=== PATIENT | female | born 1950 | race Caucasian/White ===

== ENCOUNTER → 2016-08-17 13:53 | Outpatient (CLI) | payer MEDICARE, OTHER ==
[2011-07-11 11:28] VITALS: BMI 24.6
== END | disposition home or self-care (01) ==
LOC: D.CT 13:53
DX: R51 Headache (principal)

== ENCOUNTER → 2018-03-12 19:45 | Outpatient (CLI) | payer MEDICARE ==
[2011-07-11 11:28] VITALS: BMI 24.6
== END | disposition home or self-care (01) ==
LOC: D.MAMMO 11:30
DX: N64.4 Mastodynia (principal)

== ENCOUNTER 2018-08-21 10:19 | Outpatient (CLI) | payer MEDICARE, BC ==
[~2018-08-21] VITALS: Ht 167.6 cm; Wt 68.2 kg
--- NOTE | ~2018-08-21 | HEMODYNAMI ---
PATIENT:ELLI WISEMAN MEDICAL RECORD: [id number] : 50 LOCATION:D.CAT ADMISSION DATE: 08/21/18 Generatedon:08/21/201812:57 Patient name: ELLI WISEMAN Patient #: [id number] SSN: : Date of study: 08/21/2018 Page: Of Hemodynamic Procedure Report Patient Data Patient Demographics Procedure consent was obtained First Name: ELLI Gender: Female Last Name: BOWEN : 1950 Middle Initial: L Age: 67 year(s) Patient #: [id number] Race: Unknown Additional ID: [id number] Contact details Address: [address] [place] [address] State: [place] City: [place] Zip code: [address] Past Medical History Allergies Allergen Reaction Date Comments Reported Penicillins 08/21/2018 Sulfa drugs 08/21/2018 Admission Admission Data Admission Date: 08/21/2018 Admission Time: 10:19 Height (in.): 65.75 BSA: 1.76 (m2) Height (cm.): 167 BMI: 24.38 (kg/m2) Weight (lbs.): 149.92 Weight (kg.): 68 Procedure Procedure Types Cath Procedure Diagnostic Procedure [facility] w/Coronaries FFR/IVUS Intra-Coronary IVUS Initial Procedure Description Procedure Date Procedure Date: 08/21/2018 Procedure Start Time: 12:39 Procedure End Time: 12:52 Procedure Staff Name Function Brady Arcos MD Performing Physician Shilpa Gutierrez RT Scrub Leland Calvo RT Monitor Gissell Banks RN Nurse Procedure Data Cath Procedure Fluoroscopy Diagnostic fluoroscopy Total fluoroscopy Time: 3.1 time: 3.1 min min Diagnostic fluoroscopy Total fluoroscopy dose: 348 dose: 348 mGy mGy Contrast Material Contrast Material Type Amount (ml) Isovue 300 54 Entry Location Entry Primary Successful Side Size Upsize Upsize Entry Closure Ochoa ccessful Closure Location (Fr) 1 (Fr) 2 (Fr) Remarks Device Remarks Radial Right 6 Fr Mechanical artery Short Compression Diagnostic catheters Device Type Used For End Catheter Placement DIAGNOSTIC AR MOD 5Fr Right Coronary Catheter ([id number]) Angiography DIAGNOSTIC [place] 110cm 5 Left Coronary Fr catheter ([id number]) Angiography Procedure Complications No complications Procedure Medications Medication Administration Route Dosage 0.9% NaCl I.V. 100 ml/hr Oxygen etCO2 Nasal cannula 2 l/min Lidocaine 2% added to field 20 Heparin Flush Bag added to field 2 bags (1000units/500ml NS) Versed I.V. 2 mg Fentanyl I.V. 50 mcg Fentanyl I.V. 50 mcg Radial Cocktail added to field 1 syringe (Verapomil 2mg/Nitro 400mcg/Heparin 1500units) Hemodynamics Rest BSA: 1.76 (m2) O2 Consumption: Estimated: 157.21 (ml/min) O2 Consumption indexed : Estimated:89.32 (ml/min/m) Heart Rate: 61 (bpm) Snapshots Pre Cath Intra NCS Post Cath Vital Signs Time Heart Resp SPO2 etCO2 NIBP (mmHg) Rhythm Pain Sedation Rate (ipm) (%) (mmHg) Status Level (bpm) 12:25:53 61 10 100 34.3 182/85(145) Paced 0 (11) 10(A) , No pain 12:30:22 60 17 95 30.7 145/76(94) Paced 0 (11) 10(A) , No pain 12:34:46 60 17 99 17.1 127/74(88) Paced 0 (11) 10(A) , No pain 12:39:02 60 16 98 41.1 116/65(87) Paced 0 (11) 9(A) , No pain 12:43:16 59 17 98 40.3 118/61(78) Paced 0 (11) 9(A) , No pain 12:47:32 59 12 93 41 110/57(87) Paced 0 (11) 10(A) , No pain 12:51:46 60 11 97 39.6 113/62(84) Paced 0 (11) 10(A) , No pain Medications Time Medication Route Dose Verified Delivered Reason Notes E ffectiveness by by 12:24:49 0.9% NaCl I.V. 100 Brady Mensahyla used for ml/hr Isrrael Banks senior treasury analyst 12:25:36 Oxygen etCO2 2 l/min Brady Coffmana used for Nasal Isrrael Banks procedure cannula RN 12:25:42 Lidocaine 2% added 20ml Brady Abreu for local to vial Isrrael Arcos MD anesthetic field 12:25:46 Heparin Flush added 2 bags Brady Abreu used for Bag to Isrrael Arcos MD procedure (1000units/500ml field NS) 12:30:43 Versed I.V. 2 mg Brady Gissell for Isrrael Banks sedation RN 12:30:48 Fentanyl I.V. 50 mcg Brady Gissell for Isrrael Banks sedation RN 12:36:42 Fentanyl I.V. 50 mcg Brady Gissell for Isrrael Banks sedation RN 12:36:51 Radial Cocktail added 1 Brady Mensahyla used for (Verapomil to syringe Isrrael Banks procedure 2mg/Nitro field RN 400mcg/Hepari Procedure Log Time Note 11:50:37 Signed procedure consent form obtained from patient. 11:50:38 Diagnostic Cath status Elective 11:50:40 Time tracking: Regular hours (M-F 7:00 - 5:00) 11:50:43 Plan of Care:Hemodynamics will remain stable., Cardiac rhythm will remain stable., Comfort level will be maintained., Respiratory function will remain adequate., Patient/ family verbilizes understanding of procedure., Procedure tolerated without complication., Recovers from procedure without complications.. 11:53:21 Patient Weight : 149.92 lbs 11:53:24 Patient Height : 65.75 inches 12:03:29 Leland Suit RT(R) sent for patient. Start room use. 12:15:24 Patient received from ED to CCL 1 Alert and oriented. Tansferred to table in Supine position. 12:15:25 Correct patient and procedure confirmed by team. 12:15:25 Warm blankets applied, and bettye hugger turned on for patient comfort. 12:15:26 ECG and BP/O2 sat monitors applied to patient. 12:24:31 Vital chart was started 12:24:49 0.9% NaCl 100 ml/hr I.V. was administered by Gissell Banks RN; used for procedure; 12:25:36 Oxygen 2 l/min etCO2 Nasal cannula was administered by Gissell Banks RN; used for procedure; 12:25:42 Lidocaine 2% 20ml vial added to field was administered by Brady Arcos MD; for local anesthetic; 12:25:46 Heparin Flush Bag (1000units/500ml NS) 2 bags added to field was administered by Brady Arcos MD; used for procedure; 12::19 Baseline sample Acquired. 12::22 Rhythm: sinus rhythm 12::23 Full Disclosure recording started 12:28:27 H&P Date Dictated: 08/21/2018 Within 30 days and on chart.. 12::28 Pre-op teaching completed and patient verbalized understanding. 12::28 Pre-procedure instructions explained to patient. 12:28:30 Family in waiting room. 12::31 Patient NPO since Midnight. 12::38 Patient allergic to Penicillins 12::41 Patient allergic to Sulfa drugs 12::43 Is the patient allergic to Iodine/contrast media? No. 12:28:59 Is patient on blood thinner?No 12:29:02 ACC The patient was administered the following blood thiners within the last 24 hours: ACCAspirin 12:29:08 Patient diabetic? No. 12:29:09 ----Pre-sedation anethsthesia assessment.---- 12:29:11 Previous problem with sedation/anesthesia? No ] 12:29:13 Snore? No 12:29:14 Sleep apnea? No 12:29:15 Deviated septum? Yes 12:29:17 Opens mouth fully? Yes 12:29:18 Sticks out tongue? No 12:29:21 Airway obstruction? No ? 12:29:23 Dentures? No ? 12:29:32 Pre procedure: right dorsailis pedis pulse 1+ Palpable, but thready & weak; easily obliterated 12:29:34 Patient pain scale 0/10 ?. 12:29:39 IV patent on arrival in right antecubital with 0.9% NaCl at 10ml/hr. 12::44 Lab results completed and on chart. 12::47 Right Radial & Right Groin area was prepped with chlora-prep and draped in sterile fashion 12:29:49 Sharps counted by scrub and verified by R.N. 12:29:49 Alarms reviewed by R. N. 12:29:51 Physician arrived 12::58 --------ALL STOP TIME OUT------ 12:29:59 Final Timeout: patient, procedure, and site verified with staff and physician. All members of the team are in agreement. 12:30:05 Right Radial & Right Groin site verified by team. 12:30:10 Maximum allowable Isovue 300 dose 300ml. Physician notified. (300ml for normal creatinines. For patients with creatinine of 1.7 or higher multiply weight(kg) x 5 divided by creatinine.) 12:30:16 Fire Safety Assessment: A--An alcohol-based skin anteseptic being used preoperatively., C--Open oxygen or nitrous oxide is being used., D--An ESU, laser, or fiber-optic light is being used. 12:30:19 Physical assessment completed. ASA score P 2 - A patient with mild systemic disease as per Brady Arcos MD. 12:30:22 Sedation plan: IV Moderate Sedation Medication:Versed, Fentanyl 12:30:43 Versed 2 mg I.V. was administered by Gissell Banks RN; for sedation; 12:30:48 Fentanyl 50 mcg I.V. was administered by Gissell Banks RN; for sedation; 12:36:42 Fentanyl 50 mcg I.V. was administered by Gissell Banks RN; for sedation; 12:36:51 Radial Cocktail (Verapomil 2mg/Nitro 400mcg/Heparin 1500units) 1 syringe added to field was administered by Gissell Banks RN; used for procedure; 12:37:55 Use device set Radial Dx or PCI 12:37:56 ACIST Syringe (53646) opened to sterile field. 12:37:57 Bag Decanter (2002) opened to sterile field. 12:37:57 Medline Cath Pack ([id number]) opened to sterile field. 12:37:58 ACIST Manifold (74954) opened to sterile field. 12:37:58 ACIST Hand Control (85479) opened to sterile field. 12:37:58 DIAGNOSTIC WIRE .035 260cm J wire (451886) opened to sterile field. 12:37:59 Tegaderm 4 x 4 (1626W) opened to sterile field. 12:38:01 MBrace Wrist Support ([id number]) opened to sterile field. 12:38:03 TR BAND Standard ([id number]) opened to sterile field. 12:38:04 SHEATH 6FR Slender (80-7760) opened to sterile field. 12:38:07 Procedure started. 12:39:17 Local anesthetic to right radial artery with Lidocaine 2% by Brady Arcos MD.INITIAL ACCESS ONLY 12:39:30 A 6 Fr Short sheath was inserted into the Right Radial artery 12:39:41 A DIAGNOSTIC [place] 110cm 5 Fr catheter (449771) was advanced over the wire and used for Left Coronary Angiography. 12:39:42 LV angiography performed. 12:39:54 EF : 55 % 12:40:00 LCA angiography performed. 12:41:22 INFLATOR Merit BasixCompak (LK1417) opened to sterile field. 12:43:09 Catheter removed. 12:43:23 A DIAGNOSTIC [place] MOD 5Fr Catheter ([id number]) was advanced over the wire and used for Right Coronary Angiography. 12:43:27 RCA angiography performed. 12:43:29 Catheter removed. 12:43:40 CHOICE PT Extra Support 182cm wire ([id number]) opened to sterile field. 12:45:27 Covel [place] Eag[place] IVUS Catheter (16471H) opened to sterile field. 12:45:36 GUIDE 6FR EBU 3.5 catheter ([id number]) opened to sterile field. 12:45:54 6 Fr ebu 3.5 guide catheter was inserted over the wire 12:49:28 cptes wire advanced. 12:49:42 FFR/IVUS 12:49:43 IVUS catheter advanced over wire. 12:49:54 IVUS pass to LAD lesion performed. 12:49:57 IVUS catheter removed over wire. 12:50:07 Guide catheter removed. 12:50:07 Wire removed. 12:50:28 Sheath removed intact; hemostasis achieved with Mechanical Compression to the Right Radial artery. 12:50:30 Procedure ended.(Physican Out) 12:50:39 Fluoroscopy time 03.10 minutes. 12:50:44 Fluoroscopy dose: 348 mGy 12:50:44 Flurop Dose total: 348 12:50:54 Contrast amount:Isovue 300 54ml. 12:50:56 Sharps counted by scrub and verified by R.N. 12:50:58 TR band inflated with 10cc of air. 12:51:04 Post right radial artery:stable 12:51:11 Post Procedure Pulses reassessed and unchanged 12:51:14 Post procedure: right dorsailis pedis pulse 2+ Normal; easily identifiable; not easily obliterated. 12:51:21 Post procedure rhythm: sinus rhythm 12:51:22 Post procedure instruction explained to patient.Patient verbalizes understanding. 12:51:23 Procedure and supply charges have been captured, reviewed, submitted and are correct. 12:51:40 Procedure type changed to Cath procedure, Diagnostic procedure, LHC, LHC w/Coronaries, FFR/IVUS, Intra-Coronary IVUS Initial 12:51:49 Procedure Complication : No complications 12:51:51 Vital chart was stopped 12:51:52 See physician's report for complete and final results. 12:51:55 Report given to Pre/Post Procedure Room. 12:51:58 Patient transfered to Pre/Post Procedure Room with Stretcher. 12:52:00 Full Disclosure recording stopped 12:52:00 Procedure ended. 12:52:02 End room use (Document Last) Device Usage Item Name Manufacture Quantity Catalog Number Hospital Part Current Minim al Lot# / Charge Number Stock Stock Serial# Code ACIST Acist 1 17872 119468 242357 276696 20 Syringe Medical (83936) Systems Inc Medline Medline 1 [id number] 878135 15965 547585 5 Cath Pack ([id number]) Bag Microtek 1 2001S 765789 33713 849929 5 Decanter Medical Inc. () DIAGNOSTIC [place] 1 378686 420731 483671 374777 30 WIRE .035 260cm J wire (709844) ACIST Hand Acist 1 13261 984042 917790 322953 5 Control Medical (44821) Systems Inc ACIST Acist 1 32516 603872 446559 623188 5 Manifold Medical (50741) Systems Inc Tegaderm 4 3M 1 1626W 417857 540750 719540 5 x 4 (1626W) MBrace Advanced 1 140-0250-00 759549 48538 383058 5 Wrist Vascular Support Dynamics ([id number]) TR BAND Terumo 1 [id number] 003549 577376 007800 40 Standard ([id number]) SHEATH 6FR Terumo 1 [id number] 045099 619492 679909 5 Slender (80-1060) INFLATOR Merit 1 KQ8180 411551 278842 261096 15 [facility] Medical BasixCompak (OS2891) DIAGNOSTIC Cardinal 1 [id number] 606402 539498 978344 15 AR MOD 5Fr Health Catheter (504465U) CHOICE PT [place] 1 [id number] 975654 989413 638648 5 Extra Scientific Support 182cm wire ([id number]) DIAGNOSTIC Terumo 1 40-1103 877852 712951 875628 5 [place] 110cm 5 Fr catheter (727114) Covel Covel 1 [id number] 625756 099009 258791 8 [place] Eagley[place] IVUS Catheter (25172P) GUIDE 6FR Medtronic 1 [id number] 333391 56238 447946 3 EBU 3.5 catheter ([id number]) Signature Audit [place] Stage Time Signature Unsigned Intra-Procedure 08/21/2018 Leland Calvo RT(Marilu) 12:57:01 PM Signatures Monitor : Leland Calvo RT Signature : Date : Time : [facility] [address] [place] [address]
[2018-08-21 10:38] VITALS: BP 180/87; Ht 167.6 cm; Wt 68.2 kg
[2018-08-21] MEDS ORDERED: ESTRACE1 MG PO (10:41)
[2018-08-21] MEDS ORDERED: PROSCAR5 MG PO (10:41)
[2018-08-21] MEDS ORDERED: BAYER CHEWABLE81 MG PO (10:42)
[2018-08-21] MEDS ORDERED: VITAMIN D31000 UNI2 PO (10:42)
[2018-08-21 10:55] LABS: BASOPHILS 0.2 % (0-2); EOSINOPHILS 1.1 % (0-7); HEMATOCRIT 39.9 % (36.0-48.0); LYMPHOCYTES 21.5 % (15-50); MCH 30.6 pg (26.0-34.0); MCHC 35.1 g/dL (31.0-37.0); MCV 87.3 fL (80.0-100.0); MEAN PLATELET VOLUME 10.3 fL (7.4-10.4); MONOCYTES 6.5 % (2-11); NEUTROPHILS 70.7 % (40-80); PLATELET COUNT 165 10x3/uL (130-400); RBC 4.57 10x6/uL (4.00-5.40); RDW 12.4 % (11.5-14.5); WBC 6.1 10x3/uL (4.8-10.8)
[2018-08-21 11:13] LABS: ALBUMIN 3.8 g/dL (3.4-5.0); ALKALINE PHOSPHATASE 73 U/L (46-116); ALT (SGPT) 19 U/L (10-68); BILIRUBIN - TOTAL 0.34 mg/dL (0.2-1.3); CALC OSMOLALITY 282 mosm/kg (275-300); CALCIUM 9.4 mg/dL (8.5-10.1); CARBON DIOXIDE 29.1 mmol/L (21.0-32.0); CHLORIDE - SERUM 104 mmol/L (98-107); GLUCOSE 97 mg/dL (74-106); POTASSIUM - SERUM 3.9 mmol/L (3.5-5.1); PROTEIN - SERUM 7.2 g/dL (6.4-8.2); SODIUM 140 mmol/L (136-145); UREA NITROGEN 25 mg/dL (7-18); eGFR NON AFRICAN AMERICAN 58 mL/min (90-120)
[2018-08-21 11:23] LABS: CKMB 1.1 U/L (0.0-3.6); CREATINE KINASE 76 UL (21-215); TROPONIN-I < 0.017 ng/mL (0.000-0.060)
--- NOTE | 2018-08-21 13:05 | NUR ---
PATIENT ARRIVED TO ROOM ONE. CONNECTED TO MONITOR, VSS ON 2L NC. PRESENT AT BEDSIDE. RIGHT TR BAND IN PLACE, NO S/S OF BLEEDING OR HEMATOMA.
--- NOTE | 2018-08-21 13:20 | NUR ---
PATIENT RESTING, VSS ON 2L NC. RIGHT TR BAND IN PLACE, NO S/S OF BLEEDING OR HEMATOMA. FAMILY PRESENT AT BEDSIDE. NO C/O PAIN, NUMBNESS, OR TINGLING. NO N/V.
--- NOTE | 2018-08-21 13:50 | NUR ---
PATIENT INTERMITTENTLY RESTING, VSS ON 1L NC. RIGHT TR BAND IN PLACE, NO S/S OF BLEEDING OR HEMATOMA. NO C/O PAIN, NUMBNESS, OR TINGLING. NO N/V.
--- NOTE | 2018-08-21 14:00 | NUR ---
INITIATE AIR REMOVAL PROTOCOL FOR TR BAND, 4CC OF AIR REMOVED. NO S/S OF BLEEDING OR HEMATOMA.
--- NOTE | 2018-08-21 14:20 | NUR ---
PATIENT AWAKE, VSS ON ROOM AIR. RIGHT TR BAND IN PLACE, NO S/S OF BLEEDING OR HEMATOMA. NO C/O PAIN, NUMBNESS, OR TINGLING.
--- NOTE | 2018-08-21 14:30 | NUR ---
4CC OF AIR REMOVED FROM TR BAND, NO S/S OF BLEEDING OR HEMATOMA. EDUCATION REGARDING DISCHARGE INSTRUCTIONS GIVEN TO PATIENT AND SPOUSE, ALL QUESTIONS ANSWERED, BOTH VERBALIZE UNDERSTANDING. VSS ON ROOM AIR. DRESSING APPLIED TO RIGHT RADIAL SITE IS CDI.
--- NOTE | 2018-08-21 14:39 | OP ---
PATIENT NAME: ELLI WISEMAN MEDICAL RECORD: [id number] :50 LOCATION:D.CAT ADMISSION DATE: SURGEON: BRAYAN BUCIO MD DATE OF OPERATION: 08/21/2018 PROCEDURES: 1. Left heart catheterization. 2. Selective coronary angiography. 3. Left ventriculogram. 4. Intravascular ultrasound. INDICATION: Chest pain compatible with angina. PROCEDURE IN DETAIL: After informed consent was obtained and after a detailed description of the risks, benefits as well as alternative therapies, the patient elected to proceed with angiogram and heart catheterization. The right radial area was prepped and draped in normal sterile fashion. Right radial artery was cannulated via modified Seldinger technique with placement of 5-Swedish sheath. FINDINGS: Left ventriculogram was performed in standard 30-degree LO view, reveals good cardiac wall motion throughout all segments. Overall ejection fraction estimated 60%. SELECTIVE CORONARY ANGIOGRAPHY: 1. Left main showed no significant angiographic disease. 2. Left anterior descending has a questionable area of stenosis in the mid vessel; however, intravascular ultrasound revealed that there is no significant disease. There is only tortuosity. 3. Left circumflex has moderate irregularities, but no flow-limiting stenosis. 4. Right coronary artery has moderate irregularities, but no flow-limiting stenosis. OVERALL IMPRESSION: 1. No significant coronary artery disease is present. 2. Normal left heart catheterization. 3. Normal left ventricular systolic function. TRANSINT:[id number] Voice Confirmation ID: [id number] DOCUMENT ID: [id number] BRAYAN BUCIO MD at 1439 CC: [id number] DICTATION DATE: 08/21/18 1252 NETWORK OPERATIONS TECHNICIAN: 08/21/18 1423 REG [facility] [address] [place] [address]
--- NOTE | 2018-08-21 14:39 | CN ---
PATIENT NAME:ELLI WISEMAN MEDICAL RECORD: [id number] : 50 LOCATION:D.CAT ADMIT DATE: ACCOUNT: [id number] CONSULTING PHYSICIAN: BRAYAN BUCIO MD REFERRING PHYSICIAN: LIBIA SANTIAGO MD DATE OF CONSULTATION: 08/21/2018 ADMITTING DIAGNOSES: 1. Chest pain compatible with angina. 2. Family history of coronary artery disease. HISTORY OF PRESENT ILLNESS: Mrs. Wiseman has not had a history of ischemic heart disease. For the past 2 weeks, she has had increasing episodes of chest discomfort. They are now at rest and accompanied with nausea. It has been coming on in an escalating fashion. She does have a pacemaker. She has not had any palpitations with this. PHYSICAL EXAMINATION: GENERAL APPEARANCE: Well-nourished, well-developed, appears stated age. Level of distress, comfortable. PSYCHIATRIC: Mental status, alert, normal affect. Orientation, oriented to time, place and person. EYES: Lids and conjunctiva, noninjected. No discharge, no pallor. ENT: Lips, teeth, gums, normal dentition. Oropharynx, no cyanosis, no pallor. NECK: Carotid arteries, bilateral normal upstroke, no bruits, no thrills. JUGULAR VEINS: No jugular venous pressure or distention. CERVICAL LYMPH NODES: Nontender, nonenlarged. THYROID: Not enlarged. Nontender. No nodules. LUNGS: Respiratory effort, unlabored. CHEST: Normal curvature. No thoracic deformity. No chest wall tenderness. Percussion, resonant. Auscultation, clear. No wheezes, no rales, no rhonchi. CARDIOVASCULAR: Precordial exam, nondisplaced. No heaves or pericardial thrills. Rate and rhythm, regular. Heart sounds, normal S1, normal S2. No S3, no gallop, no rub. Systolic murmur, not heard. Diastolic murmur, not heard. EXTREMITIES: No cyanosis, no edema. Peripheral pulses, full and equal in all extremities, except as noted. No bruits appreciated. ABDOMEN: Soft, nondistended. Normal aorta. No bruit. Nontender. No masses. Liver, nontender, no hepatomegaly. Spleen, nontender, no splenomegaly. MUSCULOSKELETAL: No joint tenderness. No joint swelling. No erythema. NEUROLOGICAL: Normal gait, normal strength, normal tone. SKIN: Warm and dry. OVERALL IMPRESSION: Chest pain compatible with angina. We will proceed with coronary angiography as well as pacemaker interrogation. Further care depends upon the findings of this. TRANSINT:[id number] Voice Confirmation ID: [id number] DOCUMENT ID: [id number] CONSULT REPORT [id number] ELLI WISEMAN JEFFREY MD at 1439 CC: [id number] DICTATION DATE: 08/21/18 1146 AEROSPACE PROJECT MANAGER: 08/21/18 1322 REG [facility] [address] [place] [address]
--- NOTE | 2018-08-21 14:45 | NUR ---
IV REMOVED, PATIENT GETTING DRESSED. RIGHT RADIAL DRESSING IS CDI, NO S/S OF BLEEDING OR HEMATOMA.
--- NOTE | 2018-08-21 15:00 | NUR ---
PATIENT TRANSPORTED VIA WHEELCHAIR TO CAR WITH SPOUSE DRIVING, ALL BELONGINGS SENT WITH PATIENT.
== END 2018-08-21 15:00 ==
LOC: D.ER 10:19 → D.CATH 10:19 → EDSTATUS 12:14 → D.CATH 15:00
PROVIDERS: ATTEND Emergency Medicine
DX: R07.9 Chest pain, unspecified (principal); Z01.812 Encounter for preprocedural laboratory examination

== ENCOUNTER 2018-10-17 15:30 | Outpatient (CLI) | payer MEDICARE ==
[2018-08-21 10:38] VITALS: BMI 24.2
[~2018-10-17 15:30] MED LIST: BAYER CHEWABLE81 MG PO; ESTRACE1 MG PO; PROSCAR5 MG PO; VITAMIN D31000 UNI2 PO
== END 2018-10-17 16:00 | disposition home or self-care (01) ==
LOC: D.MAMMO 15:30
PROVIDERS: ATTEND Family Medicine
DX: R92.8 Other abnormal and inconclusive findings on diagnostic imaging of breast (principal)

== ENCOUNTER 2020-09-17 14:30 | Outpatient (CLI) | payer MEDICARE ==
[2018-08-21 10:38] VITALS: BMI 24.2
== END 2020-09-17 23:59 | disposition home or self-care (01) ==
LOC: D.MAMMO 14:30
PROVIDERS: ATTEND Nurse Practitioner
DX: Z12.31 Encounter for screening mammogram for malignant neoplasm of breast (principal)